=== PATIENT | female | born 1965 | race Caucasian/White ===

== ENCOUNTER → 2019-05-25 09:30 | Outpatient (BNVA) | payer MEDICARE, SELFPAY | PROVIDERS: Family Provider Physician Assistant; PCP Physician Assistant; Visit Provider Social Worker | DX: F43.12 Post-traumatic stress disorder, chronic (principal); F60.3 Borderline personality disorder; F33.2 Major depressive disorder, recurrent severe without psychotic features | CPT/HCPCS: 90834 ==

== ENCOUNTER 2019-06-22 09:34 | Outpatient (CLI) | payer MEDICARE, SELFPAY ==
--- NOTE | 2019-06-22 09:54 | MM_ITS ---
WS: [id number] SCREENING DIGITAL MAMMOGRAM WITH CAD HISTORY: SCREENING COMPARISON: 05/06/2018 04/14/2018 and 08/05/2015 Bilateral CC and MLO views submitted. Computer aided detection analyzed. Breast composition: There are scattered areas of fibroglandular density. No suspicious masses, microc alcifications or architectural distortion. MM/[id number] IMPRESSION: BI-RADS: 1-Negative FOLLOW UP: 1 Year Follow-up
== END 2019-06-22 09:35 | disposition home or self-care (01) ==
LOC: RADSHAW 09:38
PROVIDERS: Family Provider Family Medicine; PCP Physician Assistant; Visit Provider Physician Assistant
DX: Z12.31 Encounter for screening mammogram for malignant neoplasm of breast (principal)
CPT/HCPCS: 77067

== ENCOUNTER 2019-10-25 11:02 | Outpatient (CLI) | payer MEDICARE, SELFPAY ==
--- NOTE | 2019-10-25 11:11 | USCV_ITS ---
Martinejony Teagan Age: 54 Gender: F : 1965 Exam Date: 10/25/2019 11:57 Ordering Phys: Padmini Lerner Technologist: Dionna Avelar Exam Location: [facility] [place] Indication: SOB BP: / HR: 65 Rhythm: Sinus Technical Quality: Adequate MEASUREMENTS (Male / Female) Normal Values 2D ECHO LV Diastolic Diameter PLAX 3.4 cm 4.2 - 5.9 / 3.9 - 5.3 cm LV Systolic Diameter PLAX 2.6 cm LV Chamber Size 2.9 cm IVS Diastolic Thickness 1.5 cm 0.6 - 1.0 / 0.6 - 0.9 cm IVS Systolic Thickness 1.7 cm LVPW Diastolic Thickness 1.4 cm 0.6 - 1.0 / 0.6 - 0.9 cm LVPW Systolic Thickness 1.5 cm RV Chamber Size 2.3 cm LVOT Diameter 2.1 cm LV Ejection Fraction 2D Teich 48.9 % LV Ejection Fraction MOD 2C 60.6 % LV Ejection Fraction 2C AL 59.5 % LA Diameter 4.2 cm LA Width 3.8 cm LA Height 5.2 cm RA Width 3.1 cm RA Height 5.2 cm Aorta at Sinotubular Diameter 2.9 cm M-MODE LV Diastolic Diameter MM 4.8 cm 4.2 - 5.9 / 3.9 - 5.3 cm LV Systolic Diameter MM 2.8 cm LV Ejection Fraction MM Teich 72.6 % IVS Diastolic Thickness MM 0.7 cm 0.6 - 1.0 / 0.6 - 0.9 cm IVS Systolic Thickness MM 1.5 cm LVPW Diastolic Thickness MM 1.3 cm 0.6 - 1.0 / 0.6 - 0.9 cm LVPW Systolic Thickness MM 1.6 cm RV Diastolic Diameter MM 1.7 cm Aortic Annulus Diameter 2.9 cm LA Ao Ratio MM 1.4 MV E Point Septal Separation 0.4 cm DOPPLER AV Peak Velocity 127.0 cm/s LVOT Peak Velocity 79.0 cm/s AV Area Cont Eq vti 2.0 cm squared AV Area Cont Eq pk 2.1 cm squared MV Area PHT 5.1 cm squared Mitral E to A Ratio 1.2 MV E' Velocity 8.0 cm/s Mitral E to MV E' Ratio 8.1 Mitral E to LV E' Lateral Ratio 10.8 Mitral E to LV E' Septal Ratio 6.5 TR Peak Velocity 351.3 cm/s TR Peak Gradient 49.4 mmHg TR Mean Velocity 281.0 cm/s TR Mean Gradient 34.4 mmHg TR Velocity Time Integral 155.7 cm TV Peak E Velocity 71.0 cm/s Right Atrial Pressure 3.0 mmHg Pulmonary Artery Systolic Pressu 52.4 mmHg PV Peak Velocity 55.0 cm/s RV Acceleration Time 0.1 s RV Ejection Time 0.3 s RV AcT/ET 0.5 FINDINGS Left Ventricle Normal LV size with slightly diminished ejection fraction of 55%. No gross wall motion abnormalities Right Ventricle The right ventricle is normal in size and function. Right Atrium Mildly increased right atrial size. Left Atrium Mildly increased left atrial size. Mitral Valve Thickened mitral valve. Aortic Valve Thickened aortic valve. Tricuspid Valve Mild tricuspid valve regurgitation. Pulmonic Valve Pulmonic valve not well visualized. Pericardium Normal pericardium without effusion. Aorta Normal ascending aorta dimension. CONCLUSIONS Normal LV size with slightly diminished ejection fraction of 55%. No gross wall motion abnormalities Mildly increased left atrial size. Minimally thickened aortic and mitral valves. There is no pericardial effusion. There are no intracardiac masses. Compared to the previous study from 02/12/2017, there may not be a significant change Dr Nereida Durant MD [facility] (Electronically Signed) Final Date: 25 October 2019 17:12 S
== END 2019-10-25 11:03 | disposition home or self-care (01) ==
LOC: RAD 11:07
PROVIDERS: PCP Physician Assistant; Visit Provider Physician Assistant
DX: R06.02 Shortness of breath (principal); I08.0 Rheumatic disorders of both mitral and aortic valves
CPT/HCPCS: 93306

== ENCOUNTER → 2019-12-21 10:41 | Outpatient (BNVA) | payer MEDICARE, SELFPAY | PROVIDERS: PCP Physician Assistant; Visit Provider Specialist | DX: M17.10 Unilateral primary osteoarthritis, unspecified knee (principal) | CPT/HCPCS: 73560; 73565 ==

== ENCOUNTER 2021-01-09 10:17 | Outpatient (CLI) | payer MEDICARE, SELFPAY ==
--- NOTE | 2021-01-09 10:24 | MM_ITS ---
WS: [id number] Exam: [id number] Date/Time of Exam: 01/09/2021 10:38 AM Reason For Exam: SCREENING VIEWS: MLO and CC views both breasts. Comparison made with prior exam of 08/05/2015, 04/14/2018 and 06/22/2019. Findings: There was no sign of mass, architectural distortion or suspicious calcification in either breast. Sc attered fibroglandular densities MM/[id number] Impression: BI-RADS: 2-Benign FOLLOW-UP: 1 Year Follow-up This mammogram was also analyzed by the Computer Aided Detection System R2 Imag e Webmethods Consultant.
== END 2021-01-09 10:18 | disposition home or self-care (01) ==
PROVIDERS: PCP Physician Assistant; Visit Provider Physician Assistant
DX: Z12.31 Encounter for screening mammogram for malignant neoplasm of breast (principal)
CPT/HCPCS: 77067

== ENCOUNTER → 2021-03-13 10:04 | Outpatient (BNVA) | payer MEDICARE, SELFPAY | PROVIDERS: PCP Physician Assistant; Visit Provider Social Worker | DX: F60.3 Borderline personality disorder (principal); F43.10 Post-traumatic stress disorder, unspecified | CPT/HCPCS: 90834 ==

== ENCOUNTER → 2021-04-24 11:01 | Outpatient (BNVA) | payer MEDICARE, SELFPAY | PROVIDERS: PCP Physician Assistant; Visit Provider Social Worker | DX: F60.3 Borderline personality disorder (principal); F43.10 Post-traumatic stress disorder, unspecified | CPT/HCPCS: 90834 ==

== ENCOUNTER → 2021-09-18 10:23 | Outpatient (BNVA) | payer MEDICARE, SELFPAY | PROVIDERS: PCP Physician Assistant; Visit Provider Social Worker | DX: F60.3 Borderline personality disorder (principal); F43.10 Post-traumatic stress disorder, unspecified | CPT/HCPCS: 90834 ==

== ENCOUNTER 2021-12-11 10:32 | Outpatient (CLI) | payer MEDICARE, SELFPAY ==
--- NOTE | 2021-12-11 10:38 | USCV_ITS ---
Martinejony Teagan Age: 56 Gender: F : 1965 Exam Date: 12/11/2021 10:53 Ordering Phys: Padmini Lerner Technologist: Dionna Avelar Exam Location: [facility] [place] Indication: Pulmonary hypertension BP: / HR: 82 Rhythm: Sinus Technical Quality: Adequate MEASUREMENTS (Male / Female) Normal Values 2D ECHO LV Diastolic Diameter PLAX 3.9 cm 4.2 - 5.9 / 3.9 - 5.3 cm LV Systolic Diameter PLAX 2.2 cm LV Chamber Size 2.7 cm IVS Diastolic Thickness 0.7 cm 0.6 - 1.0 / 0.6 - 0.9 cm IVS Systolic Thickness 1.2 cm LVPW Diastolic Thickness 1.1 cm 0.6 - 1.0 / 0.6 - 0.9 cm LVPW Systolic Thickness 1.6 cm RV Chamber Size 2.4 cm LVOT Diameter 2.0 cm LV Ejection Fraction 2D Teich 74.7 % LV Ejection Fraction MOD 2C 53.1 % LV Ejection Fraction 2C AL 52.6 % LA Diameter 3.3 cm LA Width 2.9 cm LA Height 3.6 cm RA Width 2.3 cm RA Height 4.7 cm Aorta at Sinotubular Diameter 2.9 cm IVC Diameter 1.3 cm M-MODE Aortic Annulus Diameter 3.3 cm LA Ao Ratio MM 1.2 MV E Point Septal Separation 0.3 cm DOPPLER AV Peak Velocity 150.0 cm/s LVOT Peak Velocity 94.0 cm/s AV Area Cont Eq vti 2.0 cm squared AV Area Cont Eq pk 2.0 cm squared MV Area PHT 4.4 cm squared Mitral E to A Ratio 0.7 MV E' Velocity 40.5 cm/s Mitral E to MV E' Ratio 8.8 Mitral E to LV E' Lateral Ratio 8.5 Mitral E to LV E' Septal Ratio 9.2 TR Peak Velocity 207.5 cm/s TR Peak Gradient 17.2 mmHg TR Mean Velocity 140.5 cm/s TR Mean Gradient 8.8 mmHg TR Velocity Time Integral 61.6 cm TV Peak E Velocity 79.0 cm/s Right Atrial Pressure 3.0 mmHg Pulmonary Artery Systolic Pressu 20.2 mmHg PV Peak Velocity 81.0 cm/s RV Acceleration Time 0.0 s RV Ejection Time 0.3 s RV AcT/ET 0.1 FINDINGS Left Ventricle Normal left ventricular size, systolic function and wall thickness, with no regional wall motion abnormalities. Left ventricular ejection fraction is estimated at 60 %. Grade I diastolic function. Right Ventricle Normal right ventricular size and systolic function. Right ventricular systolic pressure 33 mmHg. Right Atrium Normal right atrial size. Left Atrium Mildly increased left atrial size. Mitral Valve Structurally normal mitral valve. No mitral valve stenosis. No mitral valve regurgitation. Aortic Valve Aortic valve not well visualized. No aortic valve stenosis. No aortic valve regurgitation. Tricuspid Valve Structurally normal tricuspid valve. No tricuspid valve stenosis. Trace to mild tricuspid valve regurgitation. Pulmonic Valve Pulmonic valve not well visualized. Pericardium No pericardial effusion. Aorta Normal size aortic root and proximal ascending aorta. IVC Normal sized IVC. CONCLUSIONS 1. Normal left ventricular size, systolic function and wall thickness, with no regional wall motion abnormalities. Left ventricular ejection fraction is estimated at 60 %. Grade I diastolic function. 2. Mildly increased left atrial size. 3. Pulmonary artery pressure estimated at 33 mm Hg. 4. When compared to study dated 10/24/21, there may not have been any significant change. Erika Mccray MD (Electronically Signed) Final Date: 14 December 2021 21:08 S
== END 2021-12-11 10:33 | disposition home or self-care (01) ==
PROVIDERS: PCP Physician Assistant; Visit Provider Physician Assistant
DX: I27.20 Pulmonary hypertension, unspecified (principal)
CPT/HCPCS: 93306

== ENCOUNTER → 2022-01-08 10:22 | Outpatient (BNVA) | payer MEDICARE, MEDICAID, SELFPAY | PROVIDERS: PCP Physician Assistant; Visit Provider Specialist | DX: M17.0 Bilateral primary osteoarthritis of knee (principal); Z71.89 Other specified counseling | CPT/HCPCS: 20610; J1100; J2795; J3301 ==

== ENCOUNTER → 2022-07-23 09:53 | Outpatient (BNVA) | payer MEDICARE, SELFPAY | PROVIDERS: PCP Physician Assistant; Visit Provider Specialist | DX: M17.0 Bilateral primary osteoarthritis of knee (principal) | CPT/HCPCS: 20610; J1100; J2795; J3301 ==

== ENCOUNTER 2022-08-31 10:56 | Observation (INO) | payer MEDICARE, SELFPAY ==
--- NOTE | 2022-08-31 10:57 | W.ED.PSYCHS ---
HPI - Psych General: Chief Complaint: Psychiatric Symptoms Stated Complaint: PSYCH ISSUES Time Seen by Provider: 08/31/22 10:57 History of Present Illness: Mr. Curran is a 57-year-old lady with apparent psychiatric history presenting to the emergency department for somewhat unclear reasons. Apparently she has been out of her medications or not taking her medications up for approximately 2 weeks and endorses worsening mental state. She also endorses increased tics or tremulousness. Intensity symptoms is moderate to severe. Course has worsened. Patient is a somewhat poor historian. Her main concern is a possible stroke though it sounds like this is exacerbation of underlying symptoms that are chronic for her and she woke up with worsening symptoms. No other specific changes in health, exacerbating, or alleviating factors identified. Onset (ago): day(s) Duration: constant History of same: Yes Context: not taking psychiatric medications Associated psychiatric symptoms: depression and racing thoughts Review of Systems General: Reports: 10 or more systems reviewed and unremarkable except in HPI and below PFSH ED PFSH: Medical History Degenerative arthritis of knee Psychiatric care Social History Smoking and tobacco status: never smoked Alcohol intake: never Substance/Drug Use: never Physical Exam Const: COMMON NORMALS: patient oriented x3 and alert GENERAL APPEARANCE: cooperative and well developed HENMT: COMMON NORMALS: normocephalic and atraumatic HEAD & SCALP: normocephalic and atraumatic Eye: COMMON NORMALS: conjunctivae normal CONJUNCTIVA: Yes conjunctivae normal SCLERA: sclerae normal Neck/C-Spine: COMMON NORMALS: supple GENERAL: Yes trachea midline Resp: COMMON NORMALS: clear to auscultation bilaterally EFFORT & INSPECTION: Yes able to speak in complete sentences AUSCULTATION: clear to auscultation bilaterally Cardio: COMMON NORMALS: regular rate and regular rhythm RATE: regular rate RHYTHM: regular rhythm GI: COMMON NORMALS: Soft to palpation PALPATION: Yes Soft to palpation and No Tenderness to palpation present (GI) Extremity: GENERAL: Yes normal exam except as noted and No edema Neuro: COMMON NORMALS: patient oriented x3, CN's II-XII intact bilaterally, moves all extremities, no focal motor deficits and no sensory deficits noted SENSORIUM/ORIENTATION: Yes alert and No Orientation impaired OTHER: Tremor, no cogwheel rigidity, mildly distractible though does not resolve. Psych: COMMON NORMALS: mental status grossly normal and Normal thought process present THOUGHT PROCESS: Normal thought process present Course Vital Signs: Vital signs: Vital Signs Temperature 98.3 F 09/01/22 18:05 Pulse Rate 65 09/01/22 18:05 Respiratory Rate 18 09/01/22 18:05 Blood Pressure 151/90 09/01/22 18:05 Pulse Oximetry 98 09/01/22 18:05 Oxygen Delivery Me thod Room Air 09/01/22 14:00 MDM - Psych Medical Decision Making 57-year-old lady with psychiatric history presenting to the emergency department for mental health exam. She is quite disorganized and anxious and increased shakiness. Though she denies suicidal or homicidal ideation apparently she was punching herself earlier today. She offers very limited insight. EKG notable for sinus rhythm, normal axis and intervals, no STEMI. Labs demonstrate no significant hematologic or metabolic abnormality to explain symptoms. TSH is normal. Urine drug screen and toxic ingestions are negative. Urinalysis is normal. CT head is negative for acute intracranial pathology. Based on ED evaluation at this point there is no obvious condition that would preclude the patient from inpatient management of psychiatric concerns/symptoms. Initially there was thought that we do not have bed availability however bed subsequently came available. The results of ED evaluation were discussed with the patient including plan for admission due to requirement for level of care not available if discharged to prevent significant worsening/deterioration. Patient agreeable with plan. Discussed with psychiatry service who was agreeable to admit patient. Medical Records I reviewed the patient's medical records. Lab Data I reviewed the patient's lab results. 08/31/22 11:55 08/31/22 11:[address] 08/31/22 12:38 IMPRESSION: 1. No acute intracranial hemorrhage or edema. 2. Mild small vessel ischemic disease. Laboratory Results WBC 6.6 10^3/uL (4.0-10.0) 08/31/22 11:55 RBC 4.20 10^6/uL (4.1-5.3) 08/31/22 11:55 Hgb 12.6 g/dL (11.5-15.3) 08/31/22 11:55 Hct 39.1 % (37.0-47.0) 08/31/22 11:55 MCV 93.1 fl (81-99) 08/31/22 11:55 MCH 30.0 pg (28.0-34.0) 08/31/22 11:55 MCHC 32.2 g/dL (30.0-36.0) 08/31/22 11:55 RDW 13.2 % (12.1-15.1) 08/31/22 11:55 Plt Count 276 10^3/cmm (130-400) 08/31/22 11:55 MPV 8.7 fL (7.4-10.4) 08/31/22 11:55 Neut % (Auto) 62.6 % 08/31/22 11:55 Lymph % (Auto) 20.8 % 08/31/22 11:55 Mcculloch % (Auto) 7.4 % 08/31/22 11:55 Eos % (Auto) 8.0 % 08/31/22 11:55 Baso % (Auto) 0.9 % 08/31/22 11:55 Neut # (Auto) 4.15 10^3/uL (1.8-7.7) 08/31/22 11:55 Lymph # (Auto) 1.4 10^3/uL (0.8-4.8) 08/31/22 11:55 Mcculloch # (Auto) 0.5 10^3/uL (0.2-0.9) 08/31/22 11:55 Eos # (Auto) 0.5 10^3/uL (0.0-0.8) 08/31/22 11:55 Baso # (Auto) 0.1 10^3/uL (0.0-0.1) 08/31/22 11:55 Nucleated RBC % (auto) 0 % 08/31/22 11:55 Nucleated RBCs # 0.0 /100WBC 08/31/22 11:55 Sodium 133 mmol/L (136-145) L 08/31/22 11:55 Potassium 4.0 mmol/L (3.5-5.1) 08/31/22 11:55 Chloride 97 mmol/L (98-107) L 08/31/22 11:55 Carbon Dioxide 28 mmol/L (22-29) 08/31/22 11:55 Anion Gap 12.0 (5-19) 08/31/22 11:55 BUN 13 mg/dL (6-20) 08/31/22 11:55 Creatinine 0.7 mg/dL (0.5-0.9) 08/31/22 11:55 GFR Calculation 85.9 mL/min (90-130) L 08/31/22 11:55 Glucose 157 mg/dL (65-115) H 08/31/22 11:55 Calculated Osmolality 279 mOsm/kg (285-295) L 08/31/22 11:55 Calcium 8.6 mg/dL (8.5-10.5) 08/31/22 11:55 Total Bilirubin 0.2 mg/dL (0.15-1.2) 08/31/22 11:55 AST 29 U/L (0-32) 08/31/22 11:55 ALT 26 U/L (0-33) 08/31/22 11:55 Alkaline Phosphatase 159 U/L (35-105) H 08/31/22 11:55 Total Protein 6.6 g/dL (6.6-8.7) 08/31/22 11:55 Albumin 4.1 g/dL (3.5-5.2) 08/31/22 11:55 Globulin 2.5 g/dL (1.3-4.6) 08/31/22 11:55 TSH 1.13 uIU/mL (0.27-4.20) 08/31/22 11:55 Urine Color Yellow (Yellow) 08/31/22 12:20 Urine Appearance Clear (CLEAR) 08/31/22 12:20 Urine pH 6 (5-7) 08/31/22 12:20 Ur Specific [place] 1.010 (1.005-1.030) 08/31/22 12:20 Urine Protein Neg (Negative) 08/31/22 12:20 Urine Glucose (UA) Norm (Normal) 08/31/22 12:20 Urine Ketones Negative (Negative) 08/31/22 12:20 Urine Blood Neg (Negative) 08/31/22 12:20 Urine Nitrate Negative (Negative) 08/31/22 12:20 Urine Bilirubin Neg (Negative) 08/31/22 12:20 Urine Urobilinogen Norm mg/dL (Negative) 08/31/22 12:20 Ur Leukocyte Esterase Negative (Negative) 08/31/22 12:20 Salicylates < 0.3 mg/dL (3-10) L 08/31/22 11:55 Urine Opiates Screen Negative ng/mL (Negative) 08/31/22 12:20 Acetaminophen < 5.0 ug/mL (10-30) L 08/31/22 11:55 Ur Barbiturates Screen Negative ng/mL (Negative) 08/31/22 12:20 Ur Phencyclidine Scrn Negative ng/mL (Negative) 08/31/22 12:20 Ur Amphetamines Screen Negative ng/mL (Negative) 08/31/22 12:20 U Benzodiazepines Scrn Negative ng/mL (Negative) 08/31/22 12:20 Urine Cocaine Screen Negative ng/mL (Negative) 08/31/22 12:20 U Marijuana (THC) Screen Negative ng/mL (Negative) 08/31/22 12:20 Ethyl Alcohol < 10 mg/dL (0-10) 08/31/22 11:55 Discharge Plan Discharge Patient Disposition: Admitted As Inpatient Admit Provider: Jesus Alberto Cobb Clinical Impression: Acute psychosis Condition: Stable Discharge Diet: Usual diet Discharge Activity: Resume usual activity Coding Level of Care Code ED Recruiter Coordinator for Addie Bobby
[2022-08-31] MEDS: LORazepam 0.5 mg Tablet PO (12:01)
[2022-08-31] MEDS: benztropine 1 mg Tablet PO ×2 (12:01→20:36)
[2022-08-31 12:04] LABS: Basophils # 0.1 10^3/uL (0.0-0.1); Basophils % 0.9 %; Eosinophils # 0.5 10^3/uL (0.0-0.8); Hematocrit 39.1 % (37.0-47.0); Hemoglobin 12.6 g/dL (11.5-15.3); Lymphocytes # 1.4 10^3/uL (0.8-4.8); Lymphocytes % 20.8 %; Mean Corpuscular HGB Conc 32.2 g/dL (30.0-36.0); Mean Corpuscular Volume 93.1 fl (81-99); Mean Platelet Volume 8.7 fL (7.4-10.4); Monocytes # 0.5 10^3/uL (0.2-0.9); Monocytes % 7.4 %; Neutrophils # 4.15 10^3/uL (1.8-7.7); Neutrophils % 62.6 %; Nucleated Red Blood Cells % 0 %; Platelet Count 276 10^3/cmm (130-400); Red Cell Distribution Width 13.2 % (12.1-15.1); White Blood Count 6.6 10^3/uL (4.0-10.0)
[2022-08-31 12:10] VITALS: O2SAT 98
[2022-08-31 12:26] LABS: Add Urine Microscopic? NO; Charge for UA Resulting for Rev
[2022-08-31 12:34] LABS: Alanine Aminotransferase 26 U/L (0-33); Albumin Level 4.1 g/dL (3.5-5.2); Alkaline Phosphatase 159 U/L (35-105); Aspartate Amino Transferase 29 U/L (0-32); Blood Urea Nitrogen 13 mg/dL (6-20); Calcium 8.6 mg/dL (8.5-10.5); Carbon Dioxide 28 mmol/L (22-29); Chloride 97 mmol/L (98-107); Globulin 2.5 g/dL (1.3-4.6); Glomerular Filtration Rate 85.9 mL/min (90-130); Glucose 157 mg/dL (65-115); Osmolality Calculated 279 mOsm/kg (285-295); Sodium 133 mmol/L (136-145); Thyroid Stimulating Hormone 1.13 uIU/mL (0.27-4.20); Total Bilirubin 0.2 mg/dL (0.15-1.2); Total Protein 6.6 g/dL (6.6-8.7)
[2022-08-31 12:35] LABS: Acetaminophen < 5.0 ug/mL (10-30); Alcohol Level < 10 mg/dL (0-10); Salicylate < 0.3 mg/dL (3-10)
--- NOTE | 2022-08-31 12:38 | CT_ITS ---
WS: [id number] CT HEAD NONCONTRAST HISTORY: ams TECHNIQUE: Contiguous axial imaging performed through the brain in 2.5 mm imaging. Bone and soft tiss ue windows. Sagittal and coronal reformats reviewed. All CT scans at [facility] use at least one of these dose optimization techniques: automated exposure control; mA and/or kV adjustment per pa tient size (includes targeted exams where dose is matched to clinical indication); or iterative recon struction. DLP: 1849.50 mGy.cm COMPARISON: 04/29/2012 No acute intracranial hemorrhage, midline shift or mass effect. No atrophy or prior infarcts or herniation. Mild small vessel ischemic disease. Ventricles: Normal size with no hydrocephalus. No inferior displacement of the cerebellar tonsils. Paranasal sinuses: As visualized are clear. Mastoid air cells: Well pneumatized. Calvarium and scalp: Skull is intact with no soft tissue edema or swelling. CT/CT head wo con* [id number] IMPRESSION: 1. No acute intracranial hemorrhage or edema. 2. Mild small vessel ischemic disease.
[2022-08-31 12:41] LABS: Amphetamines Screen Urine Negative (Negative); Barbiturates Screen Urine Negative (Negative); Benzodiazepines Screen Urine Negative (Negative); Cocaine Screen Urine Negative (Negative); Opiate Screen Urine Negative (Negative); PCP Screen Urine Negative (Negative); THC Screen Urine Negative (Negative)
[2022-08-31 12:42] LABS: Urine Appearance Clear (CLEAR); Urine Color Yellow (Yellow); pH Urine 6 (5-7)
[2022-08-31 12:43] LABS: Bilirubin Urine Neg (Negative); Blood Urine Neg (Negative); Glucose Urine UA Norm (Normal); Ketones Urine Negative (Negative); Leukocyte Esterase Urine Negative (Negative); Nitrate Urine Negative (Negative); Protein Urine Neg (Negative); Urobilinogen Urine Norm (Negative)
--- NOTE | 2022-08-31 13:50 | ECG_ITS ---
[facility] Test Date: 2022-08-31 Pat Name: Teagan Curran Department: Room: Gender: Female Service Bar Cashier: : 1965 Requested By: Denis Rosa Order Number: [id number] Maria M MD: Jacques Grey M.D. Measurements Intervals [place] Rate: 64 P: 16 WY: 147 QRS: 67 QRSD: 76 T: 66 QT: 398 QTc: 412 Interpretive Statements SINUS RHYTHM Compared to ECG 06/06/2017 15:45:22 No significant changes Electronically Signed On 08-31-2022 17:06:57 CDT by Jacques Grey M.D. [id number]
[2022-08-31 17:47] VITALS: BP 201/82; PULSE 73; O2SAT 98
[2022-08-31] MEDS: spironolactone 25 mg Tablet 50 MG PO (17:53)
[2022-08-31] MEDS: hyDRALAzine 10 mg Tablet PO (17:53)
[2022-08-31 18:53] VITALS: BP 214/90; PULSE 76; RESP 18; TEMP 36.8; O2SAT 96
[2022-08-31 20:00] VITALS: BP 195/91; PULSE 74; RESP 18; TEMP 37; O2SAT 95
[2022-08-31] MEDS: hyDROXYzine 25 mg Capsule 50 MG PO (20:36)
[2022-08-31] MEDS: prazosin 5 mg Capsule 10 MG PO (21:06)
[2022-08-31] MEDS: quetiapine 300 mg Tablet PO (21:07)
[2022-08-31] MEDS: quetiapine 100 mg Tablet PO (21:58)
[2022-09-01 06:00] VITALS: BP 112/68; PULSE 69; RESP 18; TEMP 36.5; O2SAT 94
[2022-09-01] MEDS: carBAMazepine 200 mg Tablet 400 MG PO (09:45)
[2022-09-01] MEDS: spironolactone 25 mg Tablet 50 MG PO (09:47)
[2022-09-01] MEDS: venlafaxine ER (24HR) 150 mg Capsule PO (09:47)
--- NOTE | 2022-09-01 09:49 | PC.NURSE ---
Patient stated that she did not want to take Atorvastatin. Patient said that she doesn't need it.
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
[2022-09-01 13:44] VITALS: BP 112/68; PULSE 69; RESP 18; TEMP 36.5; O2SAT 94
[2022-09-01 14:00] VITALS: BP 151/90; PULSE 65; RESP 18; TEMP 36.8; O2SAT 98
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
[2022-09-01 18:05] VITALS: BP 151/90; PULSE 65; RESP 18; TEMP 36.8; O2SAT 98
--- NOTE | 2022-09-01 19:10 | PC.NURSE ---
Pt's spouse called to say he is in the parking lot of surgical services waiting to package pick up this pt. Pt ambulated to waiting private vehicle without difficulty escorted by LOPEZ Bird.
== END 2022-09-01 19:16 | disposition home or self-care (01) ==
LOC: ER 15:29 → NP 21:20
PROVIDERS: Admitting Provider Psychiatry & Neurology Psychiatry; Emergency Provider Emergency Medicine; PCP Physician Assistant; Visit Provider Psychiatry & Neurology Psychiatry
DX: F23 Brief psychotic disorder (principal); F43.10 Post-traumatic stress disorder, unspecified; F60.3 Borderline personality disorder; F32.A Depression, unspecified; G24.01 Drug induced subacute dyskinesia
CPT/HCPCS: 36415; 70450; 80053; 80306; 80307; 81003; 84443; 85025; 93005; 97150; 97165; 99285; G0378

== ENCOUNTER → 2023-01-07 10:42 | Outpatient (BNVA) | payer MEDICARE, SELFPAY | PROVIDERS: PCP Physician Assistant; Visit Provider Specialist | DX: M17.0 Bilateral primary osteoarthritis of knee (principal) | CPT/HCPCS: 20610; J1100; J2795; J3301 ==

== ENCOUNTER → 2023-06-10 10:55 | Outpatient (BNVA) | payer MEDICARE, SELFPAY | PROVIDERS: PCP Physician Assistant; Visit Provider Nurse Practitioner | DX: M17.0 Bilateral primary osteoarthritis of knee (principal) | CPT/HCPCS: 20610; J3301 ==

== ENCOUNTER 2023-07-22 10:14 | Outpatient (CLI) | payer MEDICARE, SELFPAY ==
--- NOTE | 2023-07-22 10:26 | FL_ITS ---
WS: [id number] Barium swallow and esophagram, 07/22/2023 Clinical Data: DYSPHAGIA Comparison: None. Fluoroscopy time: 1min [id number] # of spot films: 287 Findings: The patient swallowed the thin barium, and it flowed through the hypopharynx without hesitation. No stricture, mass, polyp or erosion was seen. There was anterior osteoarthritic change from C5-C7 impin ging slightly into the posterior hypopharynx. The barium entered the esophagus and there was poor motility throughout. There was a small hiatal her star with minimal reflux. The barium proceeded normally into the stomach. Impression: 1. Minimal impingement by osteoarthritis at C5-C7 on the posterior hypopharynx. 2. Poor esophageal motility with multiple tertiary contractions. 3. Small hiatal hernia with minimal reflux.
== END 2023-07-22 10:15 | disposition home or self-care (01) ==
PROVIDERS: PCP Physician Assistant; Visit Provider Physician Assistant
DX: R13.10 Dysphagia, unspecified (principal); M47.892 Other spondylosis, cervical region; K44.9 Diaphragmatic hernia without obstruction or gangrene
CPT/HCPCS: 74220

== ENCOUNTER 2023-08-05 09:32 | Outpatient (CLI) | payer MEDICARE, SELFPAY ==
--- NOTE | 2023-08-05 09:38 | MM_ITS ---
WS: [id number] Bilateral screening 3D tomosynthesis digital mammogram, 08/05/2023 Clinical Data: SCREENING Comparison: 01/09/2021, , 05/06/2018, 04/14/2018, 08/05/2015, 07/30/2014, 05/15/2013. Findings: The breast parenchymal pattern shows fibroglandular tissue. No spiculated masses or clustered calcifi cations are seen. There are no secondary signs of carcinoma. Impression: 1. Negative bilateral mammogram unchanged. 2. Recommend annual screening mammograms. MM/[place] [id number] BIRADS: 1-Negative FOLLOW UP: 1 Year Follow-up The CAD traffic checker was used.
== END 2023-08-05 09:33 | disposition home or self-care (01) ==
LOC: RAD 09:33
PROVIDERS: PCP Physician Assistant; Visit Provider Physician Assistant
DX: Z12.31 Encounter for screening mammogram for malignant neoplasm of breast (principal)
CPT/HCPCS: 77063; 77067

== ENCOUNTER 2023-09-30 08:04 | Outpatient (CLI) | payer MEDICARE, SELFPAY ==
--- NOTE | 2023-09-30 08:10 | FL_ITS ---
WS: [id number] Modified barium swallow, 09/30/2023 Clinical Data: Difficulty swallowing Comparison: None. Fluoroscopy time: 1min [id number] # of spot films: 0 Findings: There is premature spillage but cleared with double swallows. There was no penetration or aspiration. No residue was present in the hypopharynx. The patient propel the barium tablet normally from the or al pharynx, through the hypopharynx and into the esophagus and stomach. FL/FL barium swallow modifd [id number] Impression: Minimal premature spillage which cleared with swallowing.
== END 2023-09-30 08:05 | disposition home or self-care (01) ==
LOC: RAD 08:05
PROVIDERS: PCP Physician Assistant; Visit Provider Specialist
DX: R13.10 Dysphagia, unspecified (principal)
CPT/HCPCS: 74230; 92611

== ENCOUNTER → 2023-10-08 10:49 | Outpatient (BNVA) | payer MEDICARE, SELFPAY | PROVIDERS: PCP Physician Assistant; Visit Provider Specialist | DX: M25.561 Pain in right knee (principal); M25.562 Pain in left knee; M17.0 Bilateral primary osteoarthritis of knee; Z71.89 Other specified counseling | CPT/HCPCS: 20610; J1100; J2795; J3301 ==

== ENCOUNTER → 2024-01-11 10:00 | Outpatient (BNVA) | payer MEDICARE, SELFPAY | PROVIDERS: PCP Physician Assistant; Visit Provider Specialist | DX: R03.0 Elevated blood-pressure reading, without diagnosis of hypertension (principal); G24.01 Drug induced subacute dyskinesia; F43.10 Post-traumatic stress disorder, unspecified; F60.3 Borderline personality disorder; F32.A Depression, unspecified; E66.01 Morbid (severe) obesity due to excess calories; Z68.34 Body mass index [BMI] 34.0-34.9, adult | CPT/HCPCS: 99204 ==

== ENCOUNTER → 2024-01-14 10:51 | Outpatient (BNVA) | payer MEDICARE, SELFPAY | PROVIDERS: PCP Physician Assistant; Visit Provider Specialist | DX: M17.0 Bilateral primary osteoarthritis of knee (principal); Z71.89 Other specified counseling | CPT/HCPCS: 20610; J1100; J2795; J3301 ==

== ENCOUNTER 2024-03-02 11:02 | Inpatient (IN) | payer MEDICARE, SELFPAY ==
[2024-03-02] VITALS (7 sets, daily range): BP systolic 103–156; BP diastolic 48–109; PULSE 62–118; RESP 18–21; TEMP 36.6–37.3; O2SAT 92–100; BMI 35.7; BMI 35.4
--- NOTE | 2024-03-02 11:09 | XR_ITS ---
WS: [id number] Portable AP upright chest, 03/02/2024 Clinical Data: weakness Comparison: Two-view chest, 09/28/2019 Findings: No nodules, masses or effusions are seen. The heart is normal. The pulmonary vascularity is not increased. No pneumonia or pneumothorax is seen. There is a dextroscoliosis. The pulmonary arter ies are prominent. XR/XR chest 1V portable [id number] Impression: No change in prominent pulmonary arteries.
[2024-03-02 12:54] LABS: Basophils % 0.3 %; Eosinophils # 0.3 10^3/uL (0.0-0.8); Eosinophils % 4.9 %; Hematocrit 34.8 % (36-47); Lymphocytes % 16.5 %; Mean Corpuscular HGB Conc 33.6 g/dL (30-55); Mean Corpuscular Hemoglobin 29.8 pg (27-33); Mean Corpuscular Volume 88.5 fl (85-98); Mean Platelet Volume 9.2 fL (7.4-10.4); Monocytes # 0.8 10^3/uL (0.2-0.9); Monocytes % 13.5 %; Neutrophils # 3.66 10^3/uL (1.8-7.7); Neutrophils % 63.4 %; Nucleated Red Blood Cells % 0 %; Platelet Count 209 10^3/cmm (157-399); Red Blood Count 3.93 10^6/uL (3.85-5.65); Red Cell Distribution Width 13.1 % (12.1-15.1); White Blood Count 5.77 10^3/uL (3.29-11.43)
[2024-03-02 13:36] LABS: Alanine Aminotransferase 20 U/L (0-33); Alkaline Phosphatase 188 U/L (35-105); Anion Gap 13.6 (5-19); Aspartate Amino Transferase 22 U/L (0-32); Blood Urea Nitrogen 11 mg/dL (6-20); Calcium 8.1 mg/dL (8.5-10.5); Carbon Dioxide 30 mmol/L (22-29); Chloride 80 mmol/L (98-107); Creatinine Clr Calc Pharmacy 108.5191; Globulin 2.4 g/dL (1.3-4.6); Glomerular Filtration Rate 102.3 mL/min (90-130); Glucose 99 mg/dL (65-115); NT Pro B Type Natriuretic Pept 76 pg/mL (0-125); Osmolality Calculated 249 mOsm/kg (285-295); Potassium 3.6 mmol/L (3.5-5.1); Sodium 120 mmol/L (136-145); Total Bilirubin 0.3 mg/dL (0.15-1.2); Total Protein 6.4 g/dL (6.6-8.7)
--- NOTE | 2024-03-02 13:47 | ED_ITS ---
HPI - URI/Sore Throat 2 General: Chief Complaint: Upper Respiratory Infection Stated Complaint: covid + wednesday. feels worse today Time Seen by Provider: 03/02/24 13:41 History of Present Illness: Patient comes in today for complaints of cough, congestion, and malaise. Patient was diagnosed with COVID-19 on Wednesday at the physician's office. Patient routinely sees Padmini Lerner. Patient also sees Dr. Mckinnon for her tremors secondary to tardive dyskinesia. Patient has a long history of psychiatric illness and major depressive disorder. Patient also has a history of diabetes mellitus but blood sugar has been much better controlled and she is only dietary control at this time. Patient reports symptoms started on Wednesday, she was seen at the physician's office on Wednesday where the diagnosis of COVID was given. Related Data Home Medications Medication Instructions Recorded Confirmed lovastatin 10 mg tablet 10 mg PO DAILY 07/05/19 01/14/24 prazosin 5 mg capsule 10 mg PO BEDTIME 07/05/19 01/14/24 furosemide 20 mg tablet (Lasix) 10 mg PO QAM PRN Edema 09/04/20 01/14/24 potassium chloride 8 mEq 8 meq PO DAILY PRN with lasix 09/04/20 01/14/24 capsule,extended release quetiapine 400 mg tablet 400 mg PO BEDTIME 08/31/22 01/14/24 sodium chloride 1,000 mg soluble 3,000 mg PO BID 08/31/22 01/14/24 tablet spironolactone 50 mg tablet 50 mg PO DAILY 08/31/22 01/14/24 venlafaxine 150 mg 150 mg PO BID 08/31/22 01/14/24 capsule,extended release 24 hr bile xtvqb-pebx-rqfz-phenolpth 3 tab PO BID 10/21/23 01/14/24 tablet docusate sodium 100 mg capsule 100 mg PO DAILY 10/21/23 01/14/24 (Dulcolax Stool Softener (docusate)) multivitamin 1 tab PO DAILY 10/21/23 01/14/24 ubidecarenone-omega 3-vit E 25 1 cap PO DAILY 10/21/23 01/14/24 mg-150 (90-60) mg-200 unit capsule (Co D-64-Bflpicf E-Fish Oil) Previous Rx's Medication Instructions Recorded carbamazepine 200 mg tablet 400 mg (2 x 200 mg) PO BID #120 09/01/22 tabs deutetrabenazine 6 mg tablet 6 mg PO BID #60 tabs 01/11/24 (Austedo) Allergies Allergy/AdvReac Type Severity Reaction Status Date / Time lithium Allergy unknown Verified 01/14/24 14:25 meloxicam Allergy diarreah Verified 01/14/24 14:25 molindone [From Moban] Allergy unknown Verified 01/14/24 14:25 olanzapine [From Zyprexa] Allergy unknown Verified 01/14/24 14:25 oxytetracycline Allergy unknown Verified 01/14/24 14:25 [From Terramycin] risperidone [From Risperdal] Allergy unknown Verified 01/14/24 14:25 Review of Systems 2 General: Reports: 10 or more systems reviewed and unremarkable except in HPI and below PFSH ED 2 PFSH: Medical History (Updated 03/02/24 @ 15:05 by Manjit Servin MD) No pertinent past medical history neghx: thyroid,dvt/pe PCP: Padmini Lerner Hypertension Type 2 diabetes mellitus Psychiatric care Degenerative arthritis of knee Surgical History H/O dilation and curettage Family History Grandmother Breast cancer Hypertension Grandfather Hypertension Stroke Denies family history of Colon cancer Ovarian cancer Prostate cancer Diabetes Heart disease Hyperlipidemia Uterine cancer Thyroid disease Social History Smoking and tobacco/nicotine status: unknown if used tobacco/nicotine Physical Exam 2 Const: COMMON NORMALS: alert HENMT: COMMON NORMALS: normocephalic HEAD & SCALP: normocephalic NOSE: N gloria discharge present MOUTH: Normal oral and palatal mucosa present Neck/C-Spine: COMMON NORMALS: full ROM Resp: COMMON NORMALS: normal respiratory effort Cardio: COMMON NORMALS: regular rate RATE: regular rate GI: COMMON NORMALS: Soft to palpation and non-tender PALPATION: Yes Soft to palpation Back/Pelvis: COMMON NORMALS: thoracic and lumbar spine normal to inspection Extremity: COMMON NORMALS: full ROM Neuro: SENSORIUM/ORIENTATION: Yes alert Skin: COMMON NORMALS: turgor normal GENERAL SKIN EXAM: turgor normal Course 2 Vital Signs: Vital signs: Vital Signs Temperature 99.1 F 03/02/24 11:29 Pulse Rate 78 03/02/24 15:08 Respiratory Rate 18 03/02/24 15:08 Blood Pressure 121/104 03/02/24 15:08 Pulse Oximetry 100 03/02/24 15:08 Oxygen Delivery Me thod Room Air 03/02/24 15:08 MDM - URI/Sore Throat Medical Decision Making 58-year-old female comes in today with worsening symptoms secondary to COVID-19. Patient reportedly had seen her primary care providers on Wednesday and was diagnosed with COVID through a nasal swab. Patient reports worsening malaise and cough. Patient does have tardive dyskinesia and has had an increase in the amount of tremors. Patient reports general body aches and headache. Patient has also been having to wear her oxygen more frequently than just at night when she usually wears it. Differential diagnosis includes pneumonia, dehydration, upper respiratory infection, bronchitis. CBC shows a white blood cell count of 5000. CMP notes a sodium of 120, gap of 13.6, bun of 11, creatinine 0.6. Chest x-ray showed no pneumonia. Patient has hyponatremia. Added lactic and blood cultures, and given 2 g of Rocephin. Patient appears nontoxic. Patient is on medications which her spouse states, lowers her sodium but he cannot recall what her sodium normally runs. Last documented sodium we had was 133. I reviewed patient with Dr. Orantes who recommended patient be admitted due to the hyponatremia. Discussed patient with Dr. Hightower who graciously accepted patient for admission. Lab Data 03/02/24 12:02 03/02/24 12:02 Radiology Impressions Chest X-Ray 03/02/24 11:09 Impression: No change in prominent pulmonary arteries. Laboratory Results WBC 5.77 10^3/uL (3.29-11.43) 03/02/24 12:02 RBC 3.93 10^6/uL (3.85-5.65) 03/02/24 12:02 Hgb 11.70 g/dL (11.27-16.99) 03/02/24 12:02 Hct 34.8 % (36-47) L 03/02/24 12:02 MCV 88.5 fl (85-98) 03/02/24 12:02 MCH 29.8 pg (27-33) 03/02/24 12:02 MCHC 33.6 g/dL (30-55) 03/02/24 12:02 RDW 13.1 % (12.1-15.1) 03/02/24 12:02 Plt Count 209 10^3/cmm (157-399) 03/02/24 12:02 MPV 9.2 fL (7.4-10.4) 03/02/24 12:02 Neut % (Auto) 63.4 % 03/02/24 12:02 Lymph % (Auto) 16.5 % 03/02/24 12:02 [place] % (Auto) 13.5 % 03/02/24 12:02 Eos % (Auto) 4.9 % 03/02/24 12:02 Baso % (Auto) 0.3 % 03/02/24 12:02 Neut # (Auto) 3.66 10^3/uL (1.8-7.7) 03/02/24 12:02 Lymph # (Auto) 1.0 10^3/uL (0.8-4.8) 03/02/24 12:02 [place] # (Auto) 0.8 10^3/uL (0.2-0.9) 03/02/24 12:02 Eos # (Auto) 0.3 10^3/uL (0.0-0.8) 03/02/24 12:02 Baso # (Auto) 0.0 10^3/uL (0.0-0.1) 03/02/24 12:02 Nucleated RBC % (auto) 0 % 03/02/24 12:02 Nucleated RBCs # 0.0 /100WBC 03/02/24 12:02 Sodium 120 mmol/L (136-145) L 03/02/24 12:02 Potassium 3.6 mmol/L (3.5-5.1) 03/02/24 12:02 Chloride 80 mmol/L (98-107) L 03/02/24 12:02 Carbon Dioxide 30 mmol/L (22-29) H 03/02/24 12:02 Anion Gap 13.6 (5-19) 03/02/24 12:02 BUN 11 mg/dL (6-20) 03/02/24 12:02 Creatinine 0.6 mg/dL (0.5-0.9) 03/02/24 12:02 GFR Calculation 102.3 mL/min (90-130) 03/02/24 12:02 Glucose 99 mg/dL (65-115) 03/02/24 12:02 Calculated Osmolality 249 mOsm/kg (285-295) L 03/02/24 12:02 Calcium 8.1 mg/dL (8.5-10.5) L 03/02/24 12:02 Total Bilirubin 0.3 mg/dL (0.15-1.2) 03/02/24 12:02 AST 22 U/L (0-32) 03/02/24 12:02 ALT 20 U/L (0-33) 03/02/24 12:02 Alkaline Phosphatase 188 U/L (35-105) H 03/02/24 12:02 NT-Pro-B Natriuret Pep 76 pg/mL (0-125) 03/02/24 12:02 Total Protein 6.4 g/dL (6.6-8.7) L 03/02/24 12:02 Albumin 4.0 g/dL (3.5-5.2) 03/02/24 12:02 Globulin 2.4 g/dL (1.3-4.6) 03/02/24 12:02 All radiology interpretation(s) finalized by discharge Discharge Plan Discharge Patient Disposition: Admitted As Inpatient Clinical Impression: Hyponatremia, COVID Condition: Stable Coding Level of Care Code ED Program Director/Music Director for Addie Bobby
[2024-03-02] MEDS: sodium chloride 0.9% 1,000 ML 999 ML IV (14:12)
--- NOTE | 2024-03-02 15:04 | P.HP_ITS ---
Providers/Chief Complaint 2 Primary Care Provider: Padmini Lerner Chief Complaint: covid + wednesday. feels worse today weakness History of Present Illness Teagan Curran (Pat) is a 58 year old female with past medical history of PTSD, severe depression, tardive dyskinesia in setting of psychotropic medication, chronic hyponatremia with sodium levels as low as 119 in past, sleep apnea on nightly CPAP with oxygen who presents with history of sore throat, runny nose and congestion for which she went to urgent care on Wednesday and was found to be COVID-19 positive. Today she presents to the ER with concerns for generalized weakness, poor appetite for last 2 days and she was found to have a sodium level of 120. Hospitalist service was consulted for hyponatremia. Patient denies any nausea, vomiting, diarrhea, difficulty in breathing but does complain of cough and generalized weakness. At baseline patient is able to take care of her ADLs, walk, feed herself. Review of Systems 2 General: Reports: 10 or more systems reviewed and unremarkable except in HPI and below Const: Denies: fever(s), chills, body aches, change in appetite, change in weight, malaise, night sweats, diaphoresis, change in sleep pattern, daytime sleepiness or snoring Eyes: Denies: change in vision, blurry vision, photophobia, eye discomfort or eye discharge ENMT: Denies: throat pain, enlarged tonsils, hoarseness, mouth pain, oral sores, dry mouth, tinnitus, nasal congestion or post nasal drip Card: Denies: chest pain, palpitations, irregular heart rhythm, edema, swelling of feet/ankles, lightheadedness, syncope, pre-syncope, dyspnea on exertion, orthopnea, leg pain with exertion or acrocyanosis Resp: Denies: dyspnea, productive cough, non-productive cough, wheezing, stridor, pain on inspiration, change in phlegm color, hemoptysis or chest congestion GI: Denies: abdominal pain, nausea, vomiting, hematemesis, coffee ground emesis, dysphagia, heartburn, diarrhea, constipation, bloating, GI cramping, change in bowel habits, pain on defecation, hematochezia or melena : Denies: flank pain, dysuria, urinary frequency, urinary urgency, urinary hesitancy, nocturia or hematuria Musc: Denies: neck pain, back pain, extremity pain, joint pain, joint swelling, joint redness, joint stiffness or limited range of motion Neuro: Denies: headache(s), numbness in extremities, weakness in extremities, sensory changes, lack of coordination, difficulty walking, frequent falls, dizziness, vertigo, confusion, Slurred speech present, difficulty communicating thoughts or seizure-like activity Psych: Denies: anxiety, depression, mood swings, panic attacks, hopelessness or irritability Endo: Denies: polyuria, polydipsia, tired all the time, cold intolerance, excessive sweating, flushing or heat intolerance Ruddy/Lymph: Denies: easy bruising or easy bleeding All/Imm: Denies: tongue swelling, facial swelling or acute wheezing Medications/Allergies Home Medications Medication Instructions Recorded Confirmed Last Taken Type lovastatin 10 mg tablet 10 mg PO DAILY 07/05/19 01/14/24 08/30/22 History prazosin 5 mg capsule 10 mg PO BEDTIME 07/05/19 01/14/24 08/30/22 History furosemide 20 mg tablet (Lasix) 10 mg PO QAM PRN Edema 09/04/20 01/14/24 Unknown History potassium chloride 8 mEq 8 meq PO DAILY PRN with lasix 09/04/20 01/14/24 Unknown History capsule,extended release quetiapine 400 mg tablet 400 mg PO BEDTIME 08/31/22 01/14/24 08/30/22 History sodium chloride 1,000 mg soluble 3,000 mg PO BID 08/31/22 01/14/24 08/30/22 History tablet spironolactone 50 mg tablet 50 mg PO DAILY 08/31/22 01/14/24 08/30/22 History venlafaxine 150 mg 150 mg PO BID 08/31/22 01/14/24 08/30/22 History capsule,extended release 24 hr carbamazepine 200 mg tablet 400 mg (2 x 200 mg) PO BID #120 09/01/22 01/14/24 Unknown Rx tabs bile opipf-cpue-uwmv-phenolpth 3 tab PO BID 10/21/23 01/14/24 Unknown History tablet docusate sodium 100 mg capsule 100 mg PO DAILY 10/21/23 01/14/24 Unknown History (Dulcolax Stool Softener (docusate)) multivitamin 1 tab PO DAILY 10/21/23 01/14/24 Unknown History ubidecarenone-omega 3-vit E 25 1 cap PO DAILY 10/21/23 01/14/24 Unknown History mg-150 (90-60) mg-200 unit capsule (Co M-57-Nywmkzt E-Fish Oil) deutetrabenazine 6 mg tablet 6 mg PO BID #60 tabs 01/11/24 01/14/24 Unknown Rx (Austedo) Allergies Allergy/AdvReac Type Severity Reaction Status Date / Time lithium Allergy unknown Verified 01/14/24 14:25 meloxicam Allergy diarreah Verified 01/14/24 14:25 molindone [From Moban] Allergy unknown Verified 01/14/24 14:25 olanzapine [From Zyprexa] Allergy unknown Verified 01/14/24 14:25 oxytetracycline Allergy unknown Verified 01/14/24 14:25 [From Terramycin] risperidone [From Risperdal] Allergy unknown Verified 01/14/24 14:25 PFSH Acute 2 PFSH: Medical History (Updated 03/02/24 @ 15:05 by Manjit Servin MD) No pertinent past medical history neghx: thyroid,dvt/pe PCP: Padmini Lerner Hypertension Type 2 diabetes mellitus Psychiatric care Degenerative arthritis of knee Surgical History H/O dilation and curettage Family History Grandmother Breast cancer Hypertension Grandfather Hypertension Stroke Denies family history of Colon cancer Ovarian cancer Prostate cancer Diabetes Heart disease Hyperlipidemia Uterine cancer Thyroid disease Social History Smoking and tobacco/nicotine status: unknown if used tobacco/nicotine Vitals/I&O/Wt Last Vital Signs Temp 99.1 F 03/02/24 11:29 Pulse 118 H 03/02/24 14:06 Resp 21 H 03/02/24 14:06 BP 134/48 03/02/24 14:06 Pulse Ox 92 03/02/24 14:06 O2 Del Method Room Air 03/02/24 14:06 Weight last 48 hrs Weight 91.626 kg Physical Exam 2 Narrative: General: No acute distress, AO x3, jerking movements in setting of tardive dyskinesia HEENT: PERRLA, pupils bilaterally equal and reactive Chest: Normal vesicular breath sounds, no added sounds, equal good air entry bilaterally, occasional rhonchi all over lung jade CVS: S1-S2 regular, no murmurs, no tachycardia, no gallops, no rubs Abdomen: Soft, nontender, no organomegaly, bowel sounds present Neuro: No focal deficits, no facial deformity, AO x3, power 5/5 in all limbs Data 03/02/24 12:02 03/02/24 12:02 A&P Assessment and plan (1) Generalized weakness: Most likely in setting of COVID-19 and hyponatremia. Out of bed to chair. Physical therapy. Check carbamazepine level (2) Hyponatremia: Acute on chronic. Baseline sodium level seems to be running around 1 26-30. In the past has gone down to 120s as well. Continue with home dose of 3 g twice daily of salt tablet. Normal saline at 75 cc/h with 20 mEq of potassium. Check urine lites, urine osmolality. Monitor sodium level every 8 hour. Target sodium level around 1 25-1 30. Target 24-hour correction of 8 mEq (3) COVID: Mild disease. Not requiring oxygen. Open supplementation keeping saturation over 90%. Continue with home night oxygen therapy. Hold off on remdesivir for now. IV dexamethasone 6 mg daily. Incentive spirometry and flutter valve. Pulmicort twice daily, ipratropium and Xopenex every 6 hours. Check D-dimer, monitor CRP every 48 hourly, procalcitonin, urine bacterial antigen. (4) Tardive dyskinesia: Possible follow-up with Dr. Mckinnon as an outpatient. Worsening in setting of psychotropic medications. Continue to monitor. Continue with home dose [place] (5) Hypertension: Goal blood pressure less than 140/90 mmHg. Not on home antihypertensive. Continue to monitor. (6) Type 2 diabetes mellitus: On dietary management. Check A1c. Sliding scale if needed. (7) PTSD (post-traumatic stress disorder): Continue with chronic home medications including prazosin, Seroquel, venlafaxine. Add further medication or dosage as per med rec. Currently MedRec pending. (8) Borderline personality disorder: Plan Full code Regular diet Pepcid for PUD prophylaxis Heparin periventricularly for DVT prophylaxis Attestations 2 Medical Necessity Statement*: Admission for more than 2 midnights for management of generalized weakness in setting of hyponatremia, COVID-19 Diagnoses Generalized weakness R53.1 Hyponatremia E87.1 COVID U07.1 Tardive dyskinesia G24.01 Hypertension I10 Type 2 diabetes mellitus E11.9 PTSD (post-traumatic stress disorder) F43.10 Borderline personality disorder F60.3
[2024-03-02] MEDS: cefTRIAXone 2,000 mg SDV 2000 MG IVP (15:07)
[2024-03-02] MEDS: heparin 5,000 unit/mL INJ 1 mL 5000 UNIT SUBCUT (16:43)
[2024-03-02] MEDS: sodium chlor 0.9% + KCl 20 mEq 20 MEQ/1,000 ML BAG 75 MEQ IV (16:43)
[2024-03-02] MEDS: dexamethasone 10 mg/mL INJ 6 MG IVP (16:43)
[2024-03-02 16:58] LABS: Lactic Sepsis W/Reflex 0.6 mmol/L (0.5-2.2)
[2024-03-02 17:21] LABS: Procalcitonin 0.08 ng/mL (0-0.5); Thyroid Stimulating Hormone 1.05 uIU/mL (0.27-4.20); Vitamin B12 284 pg/mL (232-1245)
[2024-03-02 17:28] LABS: D Dimer 0.53 ug/mLFEU (0-0.59)
[2024-03-02 17:33] LABS: C Reactive Protein 42.1 mg/L (0.0-4.9); Iron 37 ug/dL (37-145); Percent Saturation 13.4 % (20-50); Sodium 123 mmol/L (136-145); Total Iron Binding Capacity 275 mcg/dl; Unsaturated Iron Binding 238 ug/dL (112-347)
[2024-03-02] MEDS: carBAMazepine 200 mg Tablet 400 MG PO (17:50)
[2024-03-02] MEDS: venlafaxine ER (24HR) 150 mg Capsule PO (17:50)
[2024-03-02] MEDS: famotidine 20 mg Tablet PO (17:50)
[2024-03-02] MEDS: sodium chloride 1 gm Tablet 3 GM PO (17:51)
[2024-03-02 18:06] LABS: Bilirubin Urine Negative (Negative); Blood Urine Negative (Negative); Glucose Urine UA Negative (Normal); Ketones Urine Negative (Negative); Leukocyte Esterase Urine 2+ (Negative); Nitrate Urine Negative (Negative); Protein Urine Negative (Negative); Specific Gravity, Urine 1.007 (1.005-1.030); Urine Appearance Clear (CLEAR); Urine Color Yellow (Yellow); Urobilinogen Urine 0.2 mg/dL (Negative); pH Urine 6.5 (5-7)
[2024-03-02 18:09] LABS: Add Urine Microscopic? YES; Bacteria Urine None Seen /hpf; Hyaline Casts Urine 0-4 /lpf; RBC Urine 0-2 /hpf (0-2); Squamous Epithelial Cell Urine 0-5 /hpf (0-5)
[2024-03-02 18:21] LABS: Add Urine Culture? No
[2024-03-02 18:47] LABS: SARS Covid-2 Antigen Positive (Negative)
[2024-03-02 21:05] LABS: Potassium, Radom Urine 17 mmol/L; Urine Random Chloride 39 mmol/L; Urine Random Sodium 39 mmol/L
[2024-03-02] MEDS: quetiapine 100 mg Tablet 400 MG PO (21:17)
[2024-03-02] MEDS: prazosin 5 mg Capsule 10 MG PO (21:17)
[2024-03-02] MEDS: ipratropium 0.5 mg/2.5 mL Neb INHALATION (21:50)
[2024-03-02] MEDS: levalbuterol 0.63 mg/3 mL Neb INHALATION (21:50)
[2024-03-02] MEDS: budesonide 0.5 mg/2 mL Neb INHALATION (21:51)
[2024-03-02 22:22] LABS: Carbamazepine Tegretol 8.6 ug/mL (4.0-12.0)
[2024-03-03] VITALS (7 sets, daily range): BP systolic 126–169; BP diastolic 49–89; PULSE 72–76; RESP 16–18; TEMP 36.4–36.7; O2SAT 92–97
[2024-03-03] MEDS: ipratropium 0.5 mg/2.5 mL Neb INHALATION ×2 (03:25→08:48)
[2024-03-03] MEDS: levalbuterol 0.63 mg/3 mL Neb INHALATION ×2 (03:25→08:46)
[2024-03-03] MEDS: heparin 5,000 unit/mL INJ 1 mL 5000 UNIT SUBCUT (04:14)
[2024-03-03 05:30] LABS: Basophils % 0.2 %; Eosinophils # 0.1 10^3/uL (0.0-0.8); Eosinophils % 1.1 %; Hematocrit 35.5 % (36-47); Lymphocytes # 1.2 10^3/uL (0.8-4.8); Lymphocytes % 26.2 %; Mean Corpuscular HGB Conc 33.5 g/dL (30-55); Mean Corpuscular Volume 89.4 fl (85-98); Mean Platelet Volume 8.8 fL (7.4-10.4); Monocytes # 0.6 10^3/uL (0.2-0.9); Monocytes % 13.9 %; Neutrophils # 2.66 10^3/uL (1.8-7.7); Neutrophils % 57.7 %; Nucleated Red Blood Cells % 0 %; Platelet Count 208 10^3/cmm (157-399); Red Blood Count 3.97 10^6/uL (3.85-5.65); Red Cell Distribution Width 12.9 % (12.1-15.1); White Blood Count 4.61 10^3/uL (3.29-11.43)
[2024-03-03 05:44] LABS: Estmated Average Glucose 117; Hemoglobin A1C 5.7 % (4.0-6.0)
[2024-03-03 05:51] LABS: Alanine Aminotransferase 17 U/L (0-33); Albumin Level 3.7 g/dL (3.5-5.2); Alkaline Phosphatase 187 U/L (35-105); Aspartate Amino Transferase 21 U/L (0-32); Blood Urea Nitrogen 9 mg/dL (6-20); Calcium 7.8 mg/dL (8.5-10.5); Carbon Dioxide 27 mmol/L (22-29); Chloride 88 mmol/L (98-107); Creatinine Clr Calc Pharmacy 107.6693; Globulin 2.6 g/dL (1.3-4.6); Glomerular Filtration Rate 102.3 mL/min (90-130); Glucose 85 mg/dL (65-115); Magnesium 1.6 mg/dL (1.7-2.3); Osmolality Calculated 262 mOsm/kg (285-295); Phosphorus 2.7 mg/dL (2.5-4.5); Sodium 127 mmol/L (136-145); Total Bilirubin 0.3 mg/dL (0.15-1.2); Total Protein 6.3 g/dL (6.6-8.7)
[2024-03-03 06:09] LABS: Folate Level 13.4 ng/mL (4.8-37.3)
[2024-03-03 06:42] LABS: Cholesterol 220 mg/dL (0-200); HDL Cholesterol 55 mg/dL (60-100); LDL Cholesterol Calculated 127 mg/dL (50-129); LDL HDL Ratio 2.31 RATIO (0.00-3.22); Triglycerides 189 mg/dL (0-150)
[2024-03-03 06:48] LABS: Procalcitonin 0.08 ng/mL (0-0.5)
[2024-03-03] MEDS: budesonide 0.5 mg/2 mL Neb INHALATION (08:46)
[2024-03-03] MEDS: sodium chloride 1 gm Tablet 3 GM PO (09:06)
[2024-03-03] MEDS: atorvastatin 40 mg Tablet 20 MG PO (09:07)
[2024-03-03] MEDS: famotidine 20 mg Tablet PO (09:07)
[2024-03-03] MEDS: carBAMazepine 200 mg Tablet 400 MG PO (09:07)
[2024-03-03] MEDS: venlafaxine ER (24HR) 150 mg Capsule PO (09:07)
--- NOTE | 2024-03-03 10:32 | P.DS_ITS ---
Discharge Providers Date of Admission: 03/02/24 15:34 Date of Discharge: March 03, 2024 Attending Provider at Admission: Manjit Servin MD Attending Provider at Discharge: Manjit Servin MD Primary Care Provider: Padmini Lerner Diagnoses at Discharge Discharge Diagnosis (1) Generalized weakness: Status: Acute (2) Hyponatremia: Status: Acute (3) COVID: Status: Acute (4) Tardive dyskinesia: Status: Acute (5) Hypertension: Status: Acute (6) Type 2 diabetes mellitus: Status: Acute (7) PTSD (post-traumatic stress disorder): Status: Acute (8) Borderline personality disorder: Status: Acute Reason for Visit Reason for Visit: covid + wednesday. feels worse today weakness Hospital Course Hospital Course Teagan Curran (Pat) is a 58 year old female with past medical history of PTSD, severe depression, tardive dyskinesia in setting of psychotropic medication, chronic hyponatremia with sodium levels as low as 119 in past, sleep apnea on nightly CPAP with oxygen who presents with history of sore throat, runny nose and congestion for which she went to urgent care on Wednesday and was found to be COVID-19 positive. Today she presents to the ER with concerns for generalized weakness, poor appetite for last 2 days and she was found to have a sodium level of 120. Hospitalist service was consulted for hyponatremia. Patient denies any nausea, vomiting, diarrhea, difficulty in breathing but does complain of cough and generalized weakness. At baseline patient is able to take care of her ADLs, walk, feed herself. Patient was admitted to the hospital further evaluation and management of generalized weakness in setting of hyponatremia and COVID-19. Hyponatremia is most likely in setting of her chronic medications getting worsened due to dehydration. She was started on IV hydration and oral medications were continued. Her sodium level improved appropriately and her up to 127 the day of discharge. She states she is feeling a lot better. She is discharged in medically stable condition on her home oral medications along with salt tablets. She has been discharged on oral steroid for next 10 days. She is to follow-up with a primary care provider within next 4 to 7 days for repeat BMP for monitoring of sodium levels. For safe discharge planning Home health were discussed in detail with the patient and for now she would want to hold off. Physical Exam Narrative: General: No acute distress, AO x3, jerking movements in setting of tardive dyskinesia HEENT: PERRLA, pupils bilaterally equal and reactive Chest: Normal vesicular breath sounds, no added sounds, equal good air entry bilaterally, occasional rhonchi all over lung jade CVS: S1-S2 regular, no murmurs, no tachycardia, no gallops, no rubs Abdomen: Soft, nontender, no organomegaly, bowel sounds present Neuro: No focal deficits, no facial deformity, AO x3, power 5/5 in all limbs Discharge Data Studies Completed and Pending Completed Studies During Hospitalization Category Date Time Status XR chest 1V portable [id number] Stat Exams 03/02/24 11:09 Completed Pending at discharge Category Date Time Status Blood Culture Stat Lab 03/02/24 15:25 Results Osmolality Urine Urgent Lab 03/02/24 16:53 Ordered Radiology Impressions Chest X-Ray 03/02/24 11:09 Impression: No change in prominent pulmonary arteries. Laboratory Results WBC 4.61 10^3/uL (3.29-11.43) 03/03/24 05:14 RBC 3.97 10^6/uL (3.85-5.65) 03/03/24 05:14 Hgb 11.90 g/dL (11.27-16.99) 03/03/24 05:14 Hct 35.5 % (36-47) L 03/03/24 05:14 MCV 89.4 fl (85-98) 03/03/24 05:14 MCH 30.0 pg (27-33) 03/03/24 05:14 MCHC 33.5 g/dL (30-55) 03/03/24 05:14 RDW 12.9 % (12.1-15.1) 03/03/24 05:14 Plt Count 208 10^3/cmm (157-399) 03/03/24 05:14 MPV 8.8 fL (7.4-10.4) 03/03/24 05:14 Neut % (Auto) 57.7 % 03/03/24 05:14 Lymph % (Auto) 26.2 % 03/03/24 05:14 Kemper % (Auto) 13.9 % 03/03/24 05:14 Eos % (Auto) 1.1 % 03/03/24 05:14 Baso % (Auto) 0.2 % 03/03/24 05:14 Neut # (Auto) 2.66 10^3/uL (1.8-7.7) 03/03/24 05:14 Lymph # (Auto) 1.2 10^3/uL (0.8-4.8) 03/03/24 05:14 Kemper # (Auto) 0.6 10^3/uL (0.2-0.9) 03/03/24 05:14 Eos # (Auto) 0.1 10^3/uL (0.0-0.8) 03/03/24 05:14 Baso # (Auto) 0.0 10^3/uL (0.0-0.1) 03/03/24 05:14 Nucleated RBC % (auto) 0 % 03/03/24 05:14 Nucleated RBCs # 0.0 /100WBC 03/03/24 05:14 D-Dimer 0.53 ug/mLFEU (0-0.59) 03/02/24 15:30 Sodium 127 mmol/L (136-145) L 03/03/24 05:14 Potassium 4.0 mmol/L (3.5-5.1) 03/03/24 05:14 Chloride 88 mmol/L (98-107) L 03/03/24 05:14 Carbon Dioxide 27 mmol/L (22-29) 03/03/24 05:14 Anion Gap 16.0 (5-19) 03/03/24 05:14 BUN 9 mg/dL (6-20) 03/03/24 05:14 Creatinine 0.6 mg/dL (0.5-0.9) 03/03/24 05:14 GFR Calculation 102.3 mL/min (90-130) 03/03/24 05:14 Glucose 85 mg/dL (65-115) 03/03/24 05:14 Estimat Average Glucose 117 03/03/24 05:14 Hemoglobin A1c 5.7 % (4.0-6.0) 03/03/24 05:14 Calculated Osmolality 262 mOsm/kg (285-295) L 03/03/24 05:14 Lactic Acid 0.6 mmol/L (0.5-2.2) 03/02/24 15:30 Calcium 7.8 mg/dL (8.5-10.5) L 03/03/24 05:14 Phosphorus 2.7 mg/dL (2.5-4.5) 03/03/24 05:14 Magnesium 1.6 mg/dL (1.7-2.3) L 03/03/24 05:14 Iron 37 ug/dL (37-145) 03/02/24 15:30 TIBC 275 mcg/dl 03/02/24 15:30 % Saturation 13.4 % (20-50) L 03/02/24 15:30 Unsat Iron Binding 238 ug/dL (112-347) 03/02/24 15:30 Total Bilirubin 0.3 mg/dL (0.15-1.2) 03/03/24 05:14 AST 21 U/L (0-32) 03/03/24 05:14 ALT 17 U/L (0-33) 03/03/24 05:14 Alkaline Phosphatase 187 U/L (35-105) H 03/03/24 05:14 C-Reactive Protein 42.1 mg/L (0.0-4.9) H 03/02/24 15:30 NT-Pro-B Natriuret Pep 76 pg/mL (0-125) 03/02/24 12:02 Total Protein 6.3 g/dL (6.6-8.7) L 03/03/24 05:14 Albumin 3.7 g/dL (3.5-5.2) 03/03/24 05:14 Globulin 2.6 g/dL (1.3-4.6) 03/03/24 05:14 Triglycerides 189 mg/dL (0-150) H 03/03/24 05:14 Cholesterol 220 mg/dL (0-200) H 03/03/24 05:14 LDL Cholesterol, Calc 127 mg/dL (50-129) 03/03/24 05:14 HDL Cholesterol 55 mg/dL (60-100) L 03/03/24 05:14 LDL/HDL Ratio 2.31 RATIO (0.00-3.22) 03/03/24 05:14 Cholesterol/HDL Ratio 4.00 mg/dL (0.0-4.40) 03/03/24 05:14 Vitamin B12 284 pg/mL (232-1245) 03/02/24 15:30 Folate 13.4 ng/mL (4.8-37.3) 03/03/24 05:14 Procalcitonin 0.08 ng/mL (0-0.5) 03/03/24 05:14 TSH 1.05 uIU/mL (0.27-4.20) 03/02/24 15:30 Urine Color Yellow (Yellow) 03/02/24 17:40 Urine Appearance Clear (CLEAR) 03/02/24 17:40 Urine pH 6.5 (5-7) 03/02/24 17:40 Ur Specific Gilbert 1.007 (1.005-1.030) 03/02/24 17:40 Urine Protein Negative (Negative) 03/02/24 17:40 Urine Glucose (UA) Negative (Normal) 03/02/24 17:40 Urine Ketones Negative (Negative) 03/02/24 17:40 Urine Blood Negative (Negative) 03/02/24 17:40 Urine Nitrate Negative (Negative) 03/02/24 17:40 Urine Bilirubin Negative (Negative) 03/02/24 17:40 Urine Urobilinogen 0.2 mg/dL (Negative) 03/02/24 17:40 Ur Leukocyte Esterase 2+ (Negative) A 03/02/24 17:40 Urine RBC 0-2 /hpf (0-2) 03/02/24 17:40 Urine WBC 11-20 /hpf (0-5) H 03/02/24 17:40 Ur Squamous Epith Cells 0-5 /hpf (0-5) 03/02/24 17:40 Amorphous Sediment Not Reportable 03/02/24 17:40 Urine Bacteria None seen /hpf (NONE) 03/02/24 17:40 Hyaline Casts 0-4 /lpf H 03/02/24 17:40 Ur Random Sodium 39 mmol/L 03/02/24 17:40 Ur Random Potassium 17 mmol/L 03/02/24 17:40 Ur Random Chloride 39 mmol/L 03/02/24 17:40 Carbamazepine 8.6 ug/mL (4.0-12.0) 03/02/24 12:02 SARS-CoV-2 Ag (Rapid) Positive (Negative) H 03/02/24 17:47 Vitals Last Vital Signs Temp 98.1 F 03/03/24 08:00 Pulse 72 03/03/24 08:48 Resp 16 03/03/24 08:48 BP 134/49 03/03/24 08:00 Pulse Ox 95 03/03/24 08:48 O2 Del Method Room Air 03/03/24 08:48 Discharge Plan Discharge Patient Disposition: Home Condition: Stable Prescriptions: New dexamethasone 6 mg tablet 6 mg PO Q24H Qty: 10 0RF Rx Instructions: for up to 10 days Continued prazosin 5 mg capsule 10 mg PO BEDTIME potassium chloride 8 mEq capsule, extended release 8 meq PO DAILY PRN (Reason: with lasix) docusate sodium [Dulcolax Stool Softener (dss)] 100 mg capsule 100 mg PO DAILY bile [id number]-phenolpth Tablet 3 tab PO BID multivitamin Tablet 1 tab PO DAILY Austedo 6 mg tablet 6 mg PO BID Qty: 60 3RF venlafaxine 150 mg capsule,extended release 24hr 150 mg PO BID quetiapine 400 mg tablet 400 mg PO BEDTIME carbamazepine 200 mg tablet 400 mg PO BID Qty: 120 1RF Discharge Orders: Discharge Order (Routine); Ordered 03/03/24 Ordered By: Manjit Servin Referrals: Padmini Lerner PA [Primary Care Provider] - 03/14/24 9:00 am Discharge Diet: Regular Discharge Activity: Resume usual activity and Increase activity as tolerated Patient Instructions: Dexamethasone (By mouth), Hyponatremia (DC), COVID-19 (Coronavirus Disease 2019) (DC), Opioid Safety Activity Restrictions/Additional Instructions: Continue with medications as before. Take dexamethasone as a steroid for next 10 days. Follow-up with a primary care provider within next 4 to 7 days for a repeat BMP. Please maintain hydration with at least 50 to 60 ounces of fluid daily. Discharge Attestations Time Spent in Discharge Care*: greater than 30 min Specific Discharge Activities: educating patient, discussing with pcp/other providers, discussing with case supervisor/social workers/dc planners, documenting/other paperwork and evaluating patient/reviewing data Status at Discharge: Cognitive status at discharge: cognitively intact , Behavioral status at discharge: cooperative , Functional status at discharge: other assisted ambulation , Overall status at discharge: patient is back to baseline Quality Metrics Clinical Quality Measures [ No reported AMI, CVA or VTE this stay] Coding Level of Care Code 56440 Total time (in minutes) for Discharge: 60 Diagnoses Generalized weakness R53.1 Hyponatremia E87.1 COVID U07.1 Tardive dyskinesia G24.01 Hypertension I10 Type 2 diabetes mellitus E11.9 PTSD (post-traumatic stress disorder) F43.10 Borderline personality disorder F60.3
--- NOTE | 2024-03-03 11:58 | PC.SOCIAL ---
IMM Updated Updated pt on IMM. No questions voiced. Provided pt a copy. Initialed, dated, & timed a copy & placed in chart.
== END 2024-03-03 14:09 | disposition home or self-care (01) | DRG 640 ==
LOC: ER 15:01 → MEDSURG 15:34
PROVIDERS: Emergency Medicine; Admitting Provider Student in an Organized Health Care Education/Training Program; Emergency Provider Nurse Practitioner Family; PCP Physician Assistant; Visit Provider Student in an Organized Health Care Education/Training Program
DX: E87.1 Hypo-osmolality and hyponatremia (principal); U07.1 COVID-19; E86.0 Dehydration; G24.01 Drug induced subacute dyskinesia; T43.95XA Adverse effect of unspecified psychotropic drug, initial encounter; I10 Essential (primary) hypertension; E11.9 Type 2 diabetes mellitus without complications; F43.10 Post-traumatic stress disorder, unspecified; F60.3 Borderline personality disorder
CPT/HCPCS: 36415; 71045; 80053; 80061; 80156; 81001; 82436; 82607; 82746; 83036; 83540; 83550; 83605; 83735; 83880; 84100; 84133; 84145; 84295; 84300; 84443; 85025; 85378; 86140; 86403; 87040; 87426; 94640; 96372; 96374; 99285; J0696; J1100; J1644; J3480; J7030; J7614; J7626; J7644

== ENCOUNTER → 2024-04-04 08:31 | Outpatient (BNVA) | payer MEDICARE, SELFPAY | PROVIDERS: PCP Physician Assistant; Visit Provider Specialist | DX: G62.9 Polyneuropathy, unspecified (principal); R03.0 Elevated blood-pressure reading, without diagnosis of hypertension; G24.01 Drug induced subacute dyskinesia; F43.10 Post-traumatic stress disorder, unspecified; F60.3 Borderline personality disorder; F32.A Depression, unspecified; E66.01 Morbid (severe) obesity due to excess calories; G24.3 Spasmodic torticollis; Z68.36 Body mass index [BMI] 36.0-36.9, adult | CPT/HCPCS: 99213; 99214 ==

== ENCOUNTER → 2024-04-28 08:09 | Outpatient (BNVA) | payer MEDICARE, SELFPAY | PROVIDERS: PCP Physician Assistant; Visit Provider Specialist | DX: M17.0 Bilateral primary osteoarthritis of knee (principal); Z71.89 Other specified counseling | CPT/HCPCS: 20610; J1100; J2795; J3301 ==

== ENCOUNTER 2024-10-12 09:42 | Outpatient (CLI) | payer MEDICARE, SELFPAY ==
--- NOTE | 2024-10-12 09:45 | MM_ITS ---
WS: [id number] BILATERAL 3D TOMOSYNTHESIS DIGITAL SCREENING MAMMOGRAM WITH CAD CLINICAL INFORMATION: SCREENING HISTORY: Screening mammogram. No current complaints. COMPARISON: 2023 TECHNIQUE: Bilateral CC and MLO views. FINDINGS: Fatty-replaced breasts bilaterally. No suspicious focal mass, asymmetry, calcifications, or architectural distortion. No evidence of malignancy. Punctate and lucent centered calcifications. MM/MM scr tomosynthesis [id number] IMPRESSION: DENSITY: There are scattered areas of fibroglandular density. BI-RADS: 2 - Benign. FOLLOW UP: 1 Year Follow-up Recommend return to annual screening mammography.
== END 2024-10-12 09:43 | disposition home or self-care (01) ==
PROVIDERS: PCP Physician Assistant; Visit Provider Physician Assistant
DX: Z12.31 Encounter for screening mammogram for malignant neoplasm of breast (principal); R92.313 Mammographic fatty tissue density, bilateral breasts; R92.1 Mammographic calcification found on diagnostic imaging of breast
CPT/HCPCS: 77063; 77067

== ENCOUNTER → 2024-11-16 10:43 | Outpatient (BNVA) | payer MEDICARE, SELFPAY | PROVIDERS: PCP Physician Assistant; Visit Provider Specialist | DX: G24.01 Drug induced subacute dyskinesia (principal); R03.0 Elevated blood-pressure reading, without diagnosis of hypertension; F43.10 Post-traumatic stress disorder, unspecified; F32.A Depression, unspecified; E66.01 Morbid (severe) obesity due to excess calories; G24.3 Spasmodic torticollis | CPT/HCPCS: 99213 ==